=== PATIENT | female | born 1980 | race Caucasian/White ===

== ENCOUNTER → 2016-12-29 | Outpatient (CLI) | payer OTHER ==
[~2016-12-29] MED LIST: ACET-76 PO; ALBUTEROL INH; BUPIVACAINE/PF 0.5% ONE; EPINEPHRINE 1 MG/ML, 1ML ONE; IBUP-1221 PO; LIDOCAINE/PF 1.5%-EPI 1:200K, 30ML ONE
== END | disposition home or self-care (01) ==
LOC: STAR 07:25
PROVIDERS: ATTEND Orthopaedic Surgery
DX: Z02.9 Encounter for administrative examinations, unspecified (principal)

== ENCOUNTER 2017-01-03 07:44 | Day surgery (SDC) | payer OTHER ==
[~2017-01-03] VITALS: Ht 170.2 cm; Wt 85.4 kg
[~2017-01-03 07:44] MED LIST changes: -ALBUTEROL INH; -EPINEPHRINE 1 MG/ML, 1ML ONE; -LIDOCAINE/PF 1.5%-EPI 1:200K, 30ML ONE; +cloniDINE/PF 100 MCG/ML, 10 ML ONE
[2017-01-03] MEDS ORDERED: GABAPENTIN 300 MG CAPSULE ONE (08:19)
[2017-01-03] MEDS ORDERED: ACETAMINOPHEN 500 MG TABLET ONE (08:19)
[2017-01-03 08:24] VITALS: BP 122/81
[2017-01-03] MEDS ORDERED: LACTATED RINGERS 1,000 ML IV SCH (08:24)
[2017-01-03] MEDS ORDERED: MIDAZOLAM 1 MG/ML, 2ML ONE (08:29)
[2017-01-03] MEDS ORDERED: FENTANYL PF 100 MCG/2ML ONE (08:29)
[2017-01-03] MEDS ORDERED: GABAPENTIN 300 MG CAPSULE PO SCH (08:30)
[2017-01-03] MEDS ORDERED: ACETAMINOPHEN 500 MG TABLET PO ONE (08:30)
[2017-01-03] MEDS ORDERED: ALBUTEROL INH (08:46)
[2017-01-03] MEDS ORDERED: KETOROLAC 30 MG/1 ML ONE (09:20)
[2017-01-03] MEDS ORDERED: PROPOFOL 10 MG/ML, 20ML ONE (09:20)
[2017-01-03] MEDS ORDERED: CEFAZOLIN 1,000 MG ONE (09:20)
[2017-01-03] MEDS ORDERED: ONDANSETRON 2MG/ML, 2ML ONE (09:20)
[2017-01-03] MEDS ORDERED: DEXAMETHASONE 4 MG/ML, 1ML ONE (09:20)
[2017-01-03] MEDS ORDERED: PROMETHAZINE 25 MG/ML, 1ML IV PRN (10:00)
[2017-01-03] MEDS ORDERED: MIDAZOLAM 1 MG/ML, 2ML IV PRN (10:00)
[2017-01-03] MEDS ORDERED: LABETALOL 5MG/ML, 20ML IV PRN (10:00)
[2017-01-03] MEDS ORDERED: ONDANSETRON 2MG/ML, 2ML IVPush PRN (10:00)
[2017-01-03] MEDS ORDERED: OXYcodone 5 MG/5 ML ORAL.SOL UDC PO PRN (10:00)
[2017-01-03] MEDS ORDERED: ALBUTEROL/IPRATROPIUM 2.5MG/0.5MG, 3 ML NPPB PRN (10:00)
[2017-01-03] MEDS ORDERED: FENTANYL PF 100 MCG/2ML IV PRN (10:00)
[2017-01-03] MEDS ORDERED: hydrALAzine 20 MG/ML, 1ML IV PRN (10:00)
[2017-01-03] MEDS ORDERED: HYDROmorphone 1 MG/ML, 1ML IV PRN (10:00)
[2017-01-03] MEDS ORDERED: METOCLOPRAMIDE 5 MG/ML, 2ML IV PRN (10:00)
== END 2017-01-03 12:15 ==
LOC: OUT 07:44
PROVIDERS: ATTEND Orthopaedic Surgery
DX: S83.241A Other tear of medial meniscus, current injury, right knee, initial encounter (principal); X58.XXXA Exposure to other specified factors, initial encounter; M65.861 Other synovitis and tenosynovitis, right lower leg; M67.51 Plica syndrome, right knee; Y93.89 Activity, other specified; Y92.89 Other specified places as the place of occurrence of the external cause; Y99.8 Other external cause status; J45.909 Unspecified asthma, uncomplicated; K21.9 Gastro-esophageal reflux disease without esophagitis; Z88.1 Allergy status to other antibiotic agents; Z98.890 Other specified postprocedural states; Z91.09 Other allergy status, other than to drugs and biological substances
CPT/HCPCS: 29881; J0171; J0690; J0735; J1100; J1885; J2405; J2704; J3010; J3490; J7120; J2250

== ENCOUNTER → 2017-01-11 | Outpatient (CLI) | payer OTHER ==
[~2017-01-11] MED LIST changes: +ALBUTEROL INH; -BUPIVACAINE/PF 0.5% ONE; -cloniDINE/PF 100 MCG/ML, 10 ML ONE
== END | disposition home or self-care (01) ==
LOC: EDSTATUS 12:00 → CFH 12:14
PROVIDERS: ATTEND Orthopaedic Surgery
DX: R60.0 Localized edema (principal)

== ENCOUNTER 2018-11-16 08:37 | Emergency (ER) | payer OTHER ==
[~2018-11-16] VITALS: Ht 170.2 cm; Wt 86.5 kg
[2018-11-16 08:45] VITALS: BP 143/93
== END 2018-11-16 10:13 | disposition home or self-care (01) ==
LOC: ED 09:45
DX: S93.402A Sprain of unspecified ligament of left ankle, initial encounter (principal); W18.30XA Fall on same level, unspecified, initial encounter; Y93.89 Activity, other specified; Y92.89 Other specified places as the place of occurrence of the external cause; Y99.8 Other external cause status
CPT/HCPCS: 99283